=== PATIENT | male | born 1960 | race Caucasian/White ===

== ENCOUNTER 2022-06-02 00:33 | Day surgery (SDC) | payer OTHER, SELFPAY ==
[2022-05-24 12:10] VITALS: BMI 38.0
[2022-06-02 10:10] VITALS: BP 114/60; PULSE 90; RESP 18; TEMP 36.2; O2SAT 96
--- NOTE | 2022-06-02 10:12 | P.HP_ITS ---
H&P: HPI History of Present Illness Date/Time: 06/02/22 10:12 Chief Complaint: History of colon polyps, neoplasia screening. Narrative: This is a 61-year-old white male patient presents for neoplasia screening. Patient reports his current weight appetite and bowel movements are normal. He denies abdominal pain. Patient has had no bleeding. Family history noncontributory. Patient was found to have benign serrated adenomatous colon polyp at the time of last colonoscopy 5 years ago. Patient presents today for follow-up surveillance colonoscopy. Review of Systems Review of Systems: Review of systems noncontributory. [facility] Past Medical History Medical History (Updated 06/02/22 @ 10:13 by Ignacio Foreman MD) Anxiety Arthritis Essential hypertension GERD (gastroesophageal reflux disease) Hypertension Hypothyroidism Sleep apnea Surgical History Surgical History (System 02/02/20 @ 12:16 by Zoë Katz) History of orthopedic surgery ORIF of right hip, CR Left arm. Right hip replacement 2010. Family History Family History (System 02/02/20 @ 12:16 by Zoë Katz) Father Hypertension Asthma Mother Cancer Mother Family history of malignant neoplasm of brain Social History Social History (System 02/02/20 @ 12:16 by Zoë Katz) Smoking status: Never smoker Second hand tobacco smoke exposure: No Alcohol intake: current Drinks per week: 10 Alcohol use details: BEER Substance use: never Substance use type: does not use Living arrangements: with family Spiritual care concerns: No Meds Home Medications and Allergies Home Medications Medication Instructions Recorded Confirmed Type levothyroxine 88 mcg tablet 88 mcg PO DAILY 10/07/19 05/24/22 History losartan 100 1 tablet PO DAILY 10/07/19 05/24/22 History mg-hydrochlorothiazide 25 mg tablet verapamil 180 mg tablet,extended 180 mg PO DAILY 10/07/19 05/24/22 History release Allergies Allergy/AdvReac Type Severity Reaction Status Date / Time Penicillins Allergy Mild Unknown Verified 06/02/22 10:08 lisinopril AdvReac Cough Verified 06/02/22 10:08 Exam Narrative: Physical exam reveals patient to be alert. Vital signs stable. HEENT exam is unremarkable. Patient is anicteric. Lungs are clear to auscultation and percussion. Heart is without murmur or extra sounds. Abdominal exam bowel sounds present soft nontender with no organomegaly. Digital external rectal exam is normal. Assessment and Plan Assessment and plan (1) History of colon polyps: Code(s): Z86.010 - Personal history of colonic polyps Status: Acute Assessment and Plan: Patient has a history of benign colon polyps removed in the colon 5 years ago. Patient presents today for screening surveillance colonoscopy. Further recommendations will be given after endoscopy.
[2022-06-02] MEDS: LACTATED RINGERS 1,000 ML 150 ML IV CONT (10:25)
--- NOTE | 2022-06-02 10:31 | WPDANESEPPF ---
Anes - Initial Pre Proc Eval Procedure: Operation Date: 06/02/22 11:15 Proposed Procedures p Screening Colonoscopy - Ignacio Foreman MD Date/Time: 06/02/22 10:31 Surgeon: Ignacio Foreman MD Pre Op Diagnosis: hx of colon polyps, neoplasm screening Patient Data Age: 61 Gender: M Height: 1.68 m Weight: 107.4 kg Last Vital Signs Temp 36.2 C L 06/02/22 10:10 Pulse 90 06/02/22 10:10 Resp 18 06/02/22 10:10 BP 114/60 06/02/22 10:10 Pulse Ox 96 06/02/22 10:10 O2 Del Method Room Air 06/02/22 10:10 Allergies Allergy/AdvReac Type Severity Reaction Status Date / Time Penicillins Allergy Mild Unknown Verified 06/02/22 10:08 lisinopril AdvReac Cough Verified 06/02/22 10:08 Home Medications Medication Instructions Recorded Confirmed Type levothyroxine 88 mcg tablet 88 mcg PO DAILY 10/07/19 05/24/22 History losartan 100 1 tablet PO DAILY 10/07/19 05/24/22 History mg-hydrochlorothiazide 25 mg tablet verapamil 180 mg tablet,extended 180 mg PO DAILY 10/07/19 05/24/22 History release Patient hx anesthesia problems: none Family hx anesthesia problems: none Results Review: All pre-operative results and documents have been reviewed as part of the pre-operative evaluation. [facility] Past Medical History Medical History Anxiety Arthritis Essential hypertension GERD (gastroesophageal reflux disease) Hypertension Hypothyroidism Sleep apnea Surgical History Surgical History History of orthopedic surgery ORIF of right hip, CR Left arm. Right hip replacement 2010. Family History Family History Father Hypertension Asthma Mother Cancer Mother Family history of malignant neoplasm of brain Social History Social History Smoking status: Never smoker Second hand tobacco smoke exposure: No Alcohol intake: current Drinks per week: 10 Alcohol use details: BEER Substance use: never Substance use type: does not use Living arrangements: with family Spiritual care concerns: No Anes - Eval Final PreProcedure Day of Procedure 06/02/22 10:31 Patient weight: obese Heart: regular rate and rhythm Lungs: clear to auscultation Airway: Mallampati scale class II Neurological: alert and oriented Last oral intake: >/= 8 hours ASA classification: III Emergent: no Anesthetic plan: proceed Anesthesia type and monitoring: general GIVS and standard monitoring Results Review: All pre-operative results and documents have been reviewed as part of the pre-operative evaluation. Informed Consent: The patient's anesthetic plan and its attendant risks and benefits were discussed with the patient/family/POA. Questions were solicited and answers provided to the satisfaction of the patient/family/POA.
[2022-06-02 11:27] VITALS: BP 109/67; PULSE 77; RESP 15; O2SAT 95
[2022-06-02 11:37] VITALS: BP 115/73; PULSE 75; RESP 17; O2SAT 98
[2022-06-02 11:47] VITALS: BP 131/82; PULSE 73; O2SAT 98
== END 2022-06-02 11:54 | disposition home or self-care (01) ==
PROVIDERS: PCP Internal Medicine; Visit Provider Internal Medicine Gastroenterology
PROC: 0DJD8ZZ Inspection of Lower Intestinal Tract, Via Natural or Artificial Opening Endoscopic (ICD-10-PCS; CPT 45378; principal; 2022-06-02 11:15)
DX: Z12.11 Encounter for screening for malignant neoplasm of colon (principal); D12.4 Benign neoplasm of descending colon; K62.1 Rectal polyp; K57.30 Diverticulosis of large intestine without perforation or abscess without bleeding; E03.9 Hypothyroidism, unspecified; F41.9 Anxiety disorder, unspecified; I10 Essential (primary) hypertension; G47.30 Sleep apnea, unspecified; E66.9 Obesity, unspecified; Z68.38 Body mass index [BMI] 38.0-38.9, adult
CPT/HCPCS: 45385; 88305; J2704; J7120

== ENCOUNTER 2025-10-02 00:08 | Day surgery (SDC) | payer BC, SELFPAY ==
[2025-09-16 09:30] VITALS: BMI 36.3
--- OUTSIDE RECORDS SUMMARY | 2025-10-02 00:11 | XMS_ITS | Data Portability ---
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 Plan of Treatment Reminders Order Date Submit Date Provider Last Modified By Organization Details Last Modified Time Details Appointments None recorded . Lab CMP, serum or plasma 2024 025 BESSIE [facility], [address], [place], [address], 5 12:20:51 lipid panel, serum 2024 025 BESSIE [facility], [address], [place], [address], 5 12:20:50 CBC 2024 025 BESSIE [facility], [address], [address], [place], [address], 5 12:20:55 PSA, serum or plasma 2024 025 [facility], [address] [facility], [address], [place], [address], 5 12:20:53 TSH, ultra-se nsitive, serum 2024 025 BESSIE [facility], [address], [place], [address], 5 12:20:52 [email or web address] n and folate panel, serum 2024 025 [facility], [address] [facility], [facility] [address], [place], [address], 5 12:20:54 CBC w/ auto diff 2023 024 [facility], [address] [facility], [facility] 2, [place], [address], 4 12:12:25 CMP, serum or plasma 2023 024 [facility], [address] [facility], [facility] [address], [place], [address], 4 12:12:23 TSH, ultra-se nsitive, serum 2023 024 [facility], [address] [facility], [facility] [address], [place], [address], 4 12:12:24 ferritin , serum or plasma 2023 024 [facility], [address] [facility], [facility] [address], [place], [address], 4 12:12:25 TIBC (total iron-bin ding capacity ), serum 2023 024 [facility], [address] [facility], [facility] [address], [place], [address], 4 12:12:23 vitamin B12, serum 2022 023 [facility], [address] [facility], [address], [place], [address], 3 12:12:28 HbA1c (hemoglo bin A1c), blood 2022 023 [facility], [address] [facility], [address], [place], [address], 3 12:12:27 PSA, serum or plasma 2022 023 [email or web address] [facility], [address] [facility], [address], [place], [address], 3 11:28:51 CBC w/ auto diff 2022 023 [facility], [address] [place] [address] 2, [place], [address], 3 04:19:47 CMP, serum or plasma 2022 023 [facility], [address] [place] [address] 2, [place], [address], 3 04:19:47 lipid panel, serum 2022 023 [facility], [address] [place] [address] 2, [place], [address], 3 04:19:46 TSH, ultra-se nsitive, serum 2022 023 [facility], [address] [place] [address] 2, [place], [address], 3 12:12:[address] referral 2022 023 [email or web address] Courtney Duque DPM, [address] [place], [address], 3 11:35:[address] referral 2022 023 [email or web address] [facility], [address] [place], [address], 3 12:28:19 Procedures colonosc opy procedur e (PROC) 2024 025 [facility], [address], [address], [place], [address], 13:56:38 Surgeries None recorded . Imaging electrom yogram + nerve conducti on study [address] (Cardiology & Emg), [address] [facility] [address] [facility], [place], [address], 17:45:23 XR, wrist, 3 or more view 2024 [facility], [address] [place] [address] [address], [place], [address], 11:33:09 Medication Orders valsarta n 320 mg-hydro chloroth iazide 25 mg tablet 2024 [facility], [address] [place], [address], 09:47:57 verapami l ER (SR) 180 mg tablet,e xtended release 2024 [facility], [address] [place], [address], 09:47:58 levothyr oxine 88 mcg tablet 2024 [facility], [address] [place], [address], 09:47:57 cyanocob alamin (vit B-12) 1,000 mcg tablet 2024 025 [facility], [address] [place], [address], 09:47:57 valsarta n 320 mg-hydro chloroth iazide 25 mg tablet 2024 025 [facility], [address] [place], [address], 5 09:53:23 verapami l ER (SR) 180 mg tablet,e xtended release 2024 025 [facility], [address] [place], [address], 5 09:53:21 levothyr oxine 88 mcg tablet 2024 025 [facility] [address] [place], [address], 5 09:53:22 cyanocob alamin (vit B-12) 1,000 mcg tablet 2024 025 [facility] [address] [place], [address], 5 09:53:21 cyanocob alamin (vit B-12) 1,000 mcg tablet 2022 023 [email or web address] [address] [facility], [address] [place], [address], 09:27:50 Patient TargetsNo targets recorded. Patient Instructions Encounter Date Encounter Id Patient Instructions Last Modified By Organization Details Last Modified Time 03/16/2023 [id number] A healthy lifestyle: care instructions nsuthan Not available 03/16/2023 11:46:58 prostate cancer screening: care instructions nsuthan Not available 03/16/2023 11:46:58 labs/f/u in 4 month nsuthan Not available 03/16/2023 11:58:15 08/24/2023 [id number] A healthy lifestyle: care instructions nsuthan Not available 08/24/2023 12:40:21 f/u in 6 month nsuthan Not available 1 12:52:01 03/21/2024 [id number] A healthy lifestyle: care instructions nsuthan Not available 03/21/2024 09:41:19 03/17/2025 [id number] A healthy lifestyle: care instructions Not available 03/17/2025 09:53:18 learning about high blood pressure Not available 03/17/2025 09:53:19 hypothyroidism: care instructions Not available 03/17/2025 09:53:18 Increase intake of fresh fruits, and vegetables. Avoid packaged foods and fast foods. Follow a low salt diet, drink at least 8-10 8oz glasses of water a day, exercise most days of the week. Take all medications as prescribed. Keep appointments with PCP and all specialists. Not available 03/17/2025 09:53:41 follow up in 6 months or sooner if needed Not available 03/17/2025 09:53:52 08/13/2025 [id number] Quitting Tobacco : Care Instructions Not available 08/13/2025 09:47:53 A healthy lifestyle: care instructions Not available 08/13/2025 09:47:53 learning about high blood pressure Not available 08/13/2025 09:47:53 Please call office if any questions or concerns. Take all medicines as prescribed and follow with all specialists as planned. Not available 08/13/2025 09:51:09 Follow-up as planned Not available 08/13/2025 09:51:02 Reason for Referral [facility] Referral for Onyc homycosis of toenails Referring Physician: Lois Schuster, Internal Medicine, Encounter Date: 03/16/2023 [facility] Referral for Onyc homycosis of toenails Referring Physician: Lois Schuster, Internal Medicine, Encounter Date: 08/24/2023 Results Created Date Observation Date Name Description Value Unit Range Abnormal Flag Note LastModifiedBy Organization Detail LastModifiedTime 08/23/2008/24/2023 LIPID PANEL cholesterol, total 204 mg/dL 100-19 9 above high normal Not Available [facility] ([facility]) [address] [facility], [place], [address], 08/24/2023 04:19:46 08/23/2008/24/2023 LIPID PANEL triglyceride s 263 mg/dL 0-149 above high normal Not Available [facility] ([facility]) [address] [place], [address], 08/24/2023 04:19:46 08/23/2008/24/2023 LIPID PANEL HDL cholesterol 49 mg/dL >39 Not Available [facility] ([facility]) [address] [place], [address], 08/24/2023 04:19:46 08/23/2008/24/2023 LIPID PANEL VLDL cholesterol cristhian 45 mg/dL 5-40 above high normal Not Available [facility] ([facility]) [address] [place], [address], 08/24/2023 04:19:46 08/23/2008/24/2023 LIPID PANEL LDL chol calc ([facility]) 110 mg/dL 0-99 above high normal Not Available [facility] ([facility]) [address] [place], [address], 08/24/2023 04:19:46 08/23/2008/24/2023 COMP. METAB OLIC PANEL (14) glucose 149 mg/dL 70-99 above high normal Not Available [facility] ([facility]) [address] [place], [address], 08/24/2023 04:19:47 08/23/2008/24/2023 COMP. METAB OLIC PANEL (14) BUN 17 mg/dL 8-27 Not Available [facility] ([facility]) [address] [place], [address], 08/24/2023 04:19:47 08/23/2008/24/2023 COMP. METAB OLIC PANEL (14) creatinine 0.88 mg/dL 0.76-1 .27 Not Available [facility] ([facility]) [address] [place], [address], 08/24/2023 04:19:47 08/23/20 23 08/24/2023 COMP. METAB OLIC PANEL (14) eGFR 98 mL/mi n/1.7 3 >59 Not Available [facility] ([facility]) [address] [facility], [place], [address], 08/24/2023 04:19:47 08/23/20 23 08/24/2023 COMP. METAB OLIC PANEL (14) BUN/creatini ne ratio 19 10-24 Not Available [facility] ([facility]) [address] [facility], [place], [address], 08/24/2023 04:19:47 08/23/2008/24/2023 COMP. METAB OLIC PANEL (14) sodium 142 mmol/ L 134-14 4 Not Available [facility] ([facility]) [address] [facility], [place], [address], 08/24/2023 04:19:47 08/23/20 23 08/24/2023 COMP. METAB OLIC PANEL (14) potassium 4.3 mmol/ L 3.5-5. 2 Not Available [facility] ([facility]) [address] [facility], [place], [address], 08/24/2023 04:19:47 08/23/20 23 08/24/2023 COMP. METAB OLIC PANEL (14) chloride 99 mmol/ L 96-106 Not Available [facility] ([facility]) [address] [facility], [place], [address], 08/24/2023 04:19:47 08/23/2008/24/2023 COMP. METAB OLIC PANEL (14) carbon dioxide, total 26 mmol/ L 20-29 Not Available [facility] ([facility]) [address] [facility], [place], [address], 08/24/2023 04:19:47 08/23/2008/24/2023 COMP. METAB OLIC PANEL (14) calcium 9.5 mg/dL 8.6-10 .2 Not Available [facility] ([facility]) [address] [facility], [place], [address], 08/24/2023 04:19:47 08/23/20 23 08/24/2023 COMP. METAB OLIC PANEL (14) protein, total 7.0 g/dL 6.0-8. 5 Not Available [facility] ([facility]) [address] [facility], [place], [address], 08/24/2023 04:19:47 08/23/2008/24/2023 COMP. METAB OLIC PANEL (14) albumin 5.0 g/dL 3.9-4. 9 above high normal Not Available [facility] ([facility]) [address] [facility], [place], [address], 08/24/2023 04:19:47 08/23/20 23 08/24/2023 COMP. METAB OLIC PANEL (14) globulin, total 2.0 g/dL 1.5-4. 5 Not Available [facility] ([facility]) [address] [place], [address], 08/24/2023 04:19:47 08/23/20 23 08/24/2023 COMP. METAB OLIC PANEL (14) A/G ratio 2.5 1.2-2. 2 above high normal Not Available [facility] ([facility]) [address] [place], [address], 08/24/2023 04:19:47 08/23/2008/24/2023 COMP. METAB OLIC PANEL (14) bilirubin, total 0.7 mg/dL 0.0-1. 2 Not Available [facility] ([facility]) [address] [facility], [place], [address], 08/24/2023 04:19:47 08/23/2008/24/2023 COMP. METAB OLIC PANEL (14) alkaline phosphatase 62 IU/L 44-121 Not Available [facility] ([facility]) [address] [facility], [place], [address], 08/24/2023 04:19:47 08/23/2008/24/2023 COMP. METAB OLIC PANEL (14) AST (SGOT) 23 IU/L 0-40 Not Available [facility] ([facility]) [address] [facility], [place], [address], 08/24/2023 04:19:47 08/23/2008/24/2023 COMP. METAB OLIC PANEL (14) ALT (SGPT) 22 IU/L 0-44 Not Available [facility] ([facility]) [address] [facility], [place], [address], 08/24/2023 04:19:47 08/23/2008/23/2023 CBC WITH DIFFE RENTI AL/PL ATELE T WBC 6.8 x10e3 /uL 3.4-10 .8 Not Available [facility] ([facility]) [address] [facility], [place], [address], 08/24/2023 04:19:47 08/23/2008/23/2023 CBC WITH DIFFE RENTI AL/PL ATELE T RBC 5.43 x10e6 /uL 4.14-5 .80 Not Available [facility] ([facility]) [address] [place], [address], 08/24/2023 04:19:47 08/23/2008/23/2023 CBC WITH DIFFE RENTI AL/PL ATELE T hemoglobin 17.9 g/dL 13.0-1 7.7 above high normal Not Available [facility] ([facility]) [address] [facility], [place], [address], 08/24/2023 04:19:47 08/23/2008/23/2023 CBC WITH DIFFE RENTI AL/PL ATELE T hematocrit 51.6 % 37.5-5 1.0 above high normal Not Available [facility] ([facility]) [address] [facility], [place], [address], 08/24/2023 04:19:47 08/23/2008/23/2023 CBC WITH DIFFE RENTI AL/PL ATELE T MCV 95 fL 79-97 Not Available [facility] ([facility]) [address] [facility], [place], [address], 08/24/2023 04:19:47 08/23/2008/23/2023 CBC WITH DIFFE RENTI AL/PL ATELE T MCH 33.0 pg 26.6-3 3.0 Not Available [facility] ([facility]) [address] [facility], [place], [address], 08/24/2023 04:19:47 08/23/2008/23/2023 CBC WITH DIFFE RENTI AL/PL ATELE T MCHC 34.7 g/dL 31.5-3 5.7 Not Available [facility] ([facility]) [address] [place], [address], 08/24/2023 04:19:47 08/23/2008/23/2023 CBC WITH DIFFE RENTI AL/PL ATELE T RDW 11.9 % 11.6-1 5.4 Not Available [facility] ([facility]) [address] [place], [address], 08/24/2023 04:19:47 08/23/2008/23/2023 CBC WITH DIFFE RENTI AL/PL ATELE T platelets 212 x10e3 /uL 150-45 0 Not Available [facility] ([facility]) [address] [place], [address], 08/24/2023 04:19:47 08/23/2008/23/2023 CBC WITH DIFFE RENTI AL/PL ATELE T neutrophils 56 % notest ab. Not Available [facility] ([facility]) [address] [facility], [place], [address], 08/24/2023 04:19:47 08/23/2008/23/2023 CBC WITH DIFFE RENTI AL/PL ATELE T lymphs 34 % notest ab. Not Available [facility] ([facility]) [address] [facility], [place], [address], 08/24/2023 04:19:47 08/23/20 23 08/23/2023 CBC WITH DIFFE RENTI AL/PL ATELE T monocytes 6 % notest ab. Not Available [facility] ([facility]) [address] [facility], [place], [address], 08/24/2023 04:19:47 08/23/2008/23/2023 CBC WITH DIFFE RENTI AL/PL ATELE T eos 3 % notest ab. Not Available [facility] ([facility]) [address] [facility], [place], [address], 08/24/2023 04:19:47 08/23/2008/23/2023 CBC WITH DIFFE RENTI AL/PL ATELE T basos 1 % notest ab. Not Available [facility] ([facility]) [address] [facility], [place], [address], 08/24/2023 04:19:47 08/23/2008/23/2023 CBC WITH DIFFE RENTI AL/PL ATELE T neutrophils (absolute) 3.9 x10e3 /uL 1.4-7. 0 Not Available [facility] ([facility]) [address] [facility], [place], [address], 08/24/2023 04:19:47 08/23/20 23 08/23/2023 CBC WITH DIFFE RENTI AL/PL ATELE T lymphs (absolute) 2.3 x10e3 /uL 0.7-3. 1 Not Available [facility] ([facility]) [address] [facility], [place], [address], 08/24/2023 04:19:47 08/23/2008/23/2023 CBC WITH DIFFE RENTI AL/PL ATELE T monocytes(ab solute) 0.4 x10e3 /uL 0.1-0. 9 Not Available [facility] ([facility]) [address] [facility], [place], [address], 08/24/2023 04:19:47 08/23/2008/23/2023 CBC WITH DIFFE RENTI AL/PL ATELE T eos (absolute) 0.2 x10e3 /uL 0.0-0. 4 Not Available [facility] ([facility]) [address] [facility], [place], [address], 08/24/2023 04:19:47 08/23/2008/23/2023 CBC WITH DIFFE RENTI AL/PL ATELE T baso (absolute) 0.0 x10e3 /uL 0.0-0. 2 Not Available [facility] ([facility]) [address] [facility], [place], [address], 08/24/2023 04:19:47 08/23/20 23 08/23/2023 CBC WITH DIFFE RENTI AL/PL ATELE T immature granulocytes 0 % notest ab. Not Available [facility] ([facility]) [address] [place], [address], 08/24/2023 04:19:47 08/23/2008/23/2023 CBC WITH DIFFE RENTI AL/PL ATELE T immature grans (abs) 0.0 x10e3 /uL 0.0-0. 1 Not Available [facility] ([facility]) [address] [facility], [place], [address], 08/24/2023 04:19:47 08/23/20 23 08/24/2023 PSA (SERI AL MONIT OR) prostate specific Ag 1.9 NG/mL 0.0-4. 0 Trudy ECLIA metho dolog y. Accor ding to the Ameri can [employer] g[employer] iatio n, Serum PSA shoul d decre ase and remai n at undet ectab le level s after radic al prost atect jason. The AUA defin es bioch emica l recur rence as an initi al PSA value 0.2 ng/mL or great er follo wed by a subse quent confi rmato ry PSA value 0.2 ng/mL or great er. Value s obtai uli with diffe rent assay metho ds or kits canno t be used inter alaniz eably . Resul ts canno t be inter prete d as absol [facility] ev[facility] nce of the prese nce or absen ce of cristina fu se. Not Available [facility] ([facility]) [address] [facility], [place], [address], 08/24/2023 12:12:27 08/23/2008/24/2023 PSA (SERI AL MONIT OR) pdf . Not Available [facility] ([facility]) [address] [place], [address], 08/24/2023 12:12:27 08/23/2008/24/2023 HEMOG LOBIN A1C hemoglobin A1C 5.3 % 4.8-5. 6 Predi abete s: 5.7 - 6.4 Diabe jag: >6.4 Glyce anil contr ol for adult s with diabe jag: <7.0 Not Available [facility] ([facility]) [address] [place], [address], 08/24/2023 12:12:27 08/23/2008/24/2023 TSH TSH 2.390 uIU/m L 0.450- 4.500 Not Available [facility] ([facility]) [address] [place], [address], 08/24/2023 12:12:28 08/23/2008/24/2023 VITAM IN B12 vitamin B12 308 pg/mL 232-12 45 Not Available [facility] ([facility]) [address] [facility], [place], [address], 08/24/2023 12:12:28 06/09/20 24 06/10/2024 COMP. METAB OLIC PANEL (14) glucose 118 mg/dL 70-99 above high normal Not Available [facility] ([facility]) [address] [facility], [place], [address], 06/10/2024 12:12:23 06/09/20 24 06/10/2024 COMP. METAB OLIC PANEL (14) BUN 17 mg/dL 8-27 Not Available [facility] ([facility]) [address] [facility], [place], [address], 06/10/2024 12:12:23 06/09/20 24 06/10/2024 COMP. METAB OLIC PANEL (14) creatinine 0.94 mg/dL 0.76-1 .27 Not Available [facility] ([facility]) [address] [place], [address], 06/10/2024 12:12:23 06/09/20 24 06/10/2024 COMP. METAB OLIC PANEL (14) eGFR 92 mL/mi n/1.7 3 >59 Not Available [facility] ([facility]) [address] [facility], [place], [address], 06/10/2024 12:12:23 06/09/20 24 06/10/2024 COMP. METAB OLIC PANEL (14) BUN/creatini ne ratio 18 10-24 Not Available [facility] ([facility]) [address] [place], [address], 06/10/2024 12:12:23 06/09/20 24 06/10/2024 COMP. METAB OLIC PANEL (14) sodium 142 mmol/ L 134-14 4 Not Available [facility] ([facility]) [address] [place], [address], 06/10/2024 12:12:23 06/09/20 24 06/10/2024 COMP. METAB OLIC PANEL (14) potassium 3.9 mmol/ L 3.5-5. 2 Not Available [facility] ([facility]) [address] [place], [address], 06/10/2024 12:12:23 06/09/20 24 06/10/2024 COMP. METAB OLIC PANEL (14) chloride 101 mmol/ L 96-106 Not Available [facility] ([facility]) [address] [place], [address], 06/10/2024 12:12:23 06/09/20 24 06/10/2024 COMP. METAB OLIC PANEL (14) carbon dioxide, total 22 mmol/ L - Not Available [facility] ([facility]) [address] [place], [address], 06/10/2024 12:12:23 06/09/20 24 06/10/2024 COMP. METAB OLIC PANEL (14) calcium 9.4 mg/dL 8.6-10 .2 Not Available [facility] ([facility]) [address] [place], [address], 06/10/2024 12:12:23 06/09/20 24 06/10/2024 COMP. METAB OLIC PANEL (14) protein, total 6.8 g/dL 6.0-8. 5 Not Available [facility] ([facility]) [address] [place], [address], 06/10/2024 12:12:23 06/09/20 24 06/10/2024 COMP. METAB OLIC PANEL (14) albumin 4.5 g/dL 3.9-4. 9 Not Available [facility] ([facility]) [address] [place], [address], 06/10/2024 12:12:23 06/09/20 24 06/10/2024 COMP. METAB OLIC PANEL (14) globulin, total 2.3 g/dL 1.5-4. 5 Not Available [facility] ([facility]) [address] [facility], [place], [address], 06/10/2024 12:12:23 06/09/20 24 06/10/2024 COMP. METAB OLIC PANEL (14) bilirubin, total 0.4 mg/dL 0.0-1. 2 Not Available [facility] ([facility]) [address] [facility], [place], [address], 06/10/2024 12:12:23 06/09/20 24 06/10/2024 COMP. METAB OLIC PANEL (14) alkaline phosphatase 73 IU/L 44-121 Not Available [facility] ([facility]) [address] [facility], [place], [address], 06/10/2024 12:12:23 06/09/20 24 06/10/2024 COMP. METAB OLIC PANEL (14) AST (SGOT) 22 IU/L 0-40 Not Available [facility] ([facility]) [address] [facility], [place], [address], 06/10/2024 12:12:23 06/09/20 24 06/10/2024 COMP. METAB OLIC PANEL (14) ALT (SGPT) 21 IU/L 0-44 Not Available [facility] ([facility]) [address] [facility], [place], [address], 06/10/2024 12:12:23 06/09/20 24 06/10/2024 IRON AND TIBC iron bind.cap.(TI BC) 327 ug/dL 250-45 0 Not Available [facility] ([facility]) [address] [facility], [place], [address], 06/10/2024 12:12:23 06/09/20 24 06/10/2024 IRON AND TIBC UIBC 232 ug/dL 111-34 3 Not Available [facility] ([facility]) [address] [place], [address], 06/10/2024 12:12:23 06/09/20 24 06/10/2024 IRON AND TIBC iron 95 ug/dL 38-169 Not Available [facility] ([facility]) [address] [place], [address], 06/10/2024 12:12:23 06/09/20 24 06/10/2024 IRON AND TIBC iron saturation 29 % 15-55 Not Available [facility] ([facility]) [address] [place], [address], 06/10/2024 12:12:23 06/09/20 24 06/10/2024 TSH TSH 2.200 uIU/m L 0.450- 4.500 Not Available [facility] ([facility]) [address] [place], [address], 06/10/2024 12:12:24 06/09/20 24 06/10/2024 ALEC TIN ferritin 502 NG/mL 30-400 above high normal Not Available [facility] ([facility]) [address] [place], [address], 06/10/2024 12:12:25 06/09/20 24 06/10/2024 CBC WITH DIFFE RENTI AL/PL ATELE T WBC 6.9 x10e3 /uL 3.4-10 .8 Not Available [facility] ([facility]) [address] [place], [address], 06/10/2024 12:12:25 06/09/20 24 06/10/2024 CBC WITH DIFFE RENTI AL/PL ATELE T RBC 5.32 x10e6 /uL 4.14-5 .80 Not Available [facility] ([facility]) [address] [place], [address], 06/10/2024 12:12:25 06/09/20 24 06/10/2024 CBC WITH DIFFE RENTI AL/PL ATELE T hemoglobin 17.2 g/dL 13.0-1 7.7 Not Available [facility] ([facility]) [address] [place], [address], 06/10/2024 12:12:25 06/09/20 24 06/10/2024 CBC WITH DIFFE RENTI AL/PL ATELE T hematocrit 51.0 % 37.5-5 1.0 Not Available [facility] ([facility]) [address] [place], [address], 06/10/2024 12:12:25 06/09/20 24 06/10/2024 CBC WITH DIFFE RENTI AL/PL ATELE T MCV 96 fL 79-97 Not Available [facility] ([facility]) [address] [place], [address], 06/10/2024 12:12:25 06/09/20 24 06/10/2024 CBC WITH DIFFE RENTI AL/PL ATELE T MCH 32.3 pg 26.6-3 3.0 Not Available [facility] ([facility]) [address] [place], [address], 06/10/2024 12:12:25 06/09/20 24 06/10/2024 CBC WITH DIFFE RENTI AL/PL ATELE T MCHC 33.7 g/dL 31.5-3 5.7 Not Available [facility] ([facility]) [address] [place], [address], 06/10/2024 12:12:25 06/09/20 24 06/10/2024 CBC WITH DIFFE RENTI AL/PL ATELE T RDW 12.4 % 11.6-1 5.4 Not Available [facility] ([facility]) [address] [place], [address], 06/10/2024 12:12:25 06/09/20 24 06/10/2024 CBC WITH DIFFE RENTI AL/PL ATELE T platelets 211 x10e3 /uL 150-45 0 Not Available [facility] ([facility]) [address] [facility], [place], [address], 06/10/2024 12:12:25 06/09/20 24 06/10/2024 CBC WITH DIFFE RENTI AL/PL ATELE T neutrophils 59 % notest ab. Not Available [facility] ([facility]) [address] [facility], [place], [address], 06/10/2024 12:12:25 06/09/20 24 06/10/2024 CBC WITH DIFFE RENTI AL/PL ATELE T lymphs 32 % notest ab. Not Available [facility] ([facility]) [address] [facility], [place], [address], 06/10/2024 12:12:25 06/09/20 24 06/10/2024 CBC WITH DIFFE RENTI AL/PL ATELE T monocytes 6 % notest ab. Not Available [facility] ([facility]) [address] [facility], [place], [address], 06/10/2024 12:12:25 06/09/20 24 06/10/2024 CBC WITH DIFFE RENTI AL/PL ATELE T eos 2 % notest ab. Not Available [facility] ([facility]) [address] [facility], [place], [address], 06/10/2024 12:12:25 06/09/20 24 06/10/2024 CBC WITH DIFFE RENTI AL/PL ATELE T basos 1 % notest ab. Not Available [facility] ([facility]) [address] [facility], [place], [address], 06/10/2024 12:12:25 06/09/20 24 06/10/2024 CBC WITH DIFFE RENTI AL/PL ATELE T neutrophils (absolute) 4.1 x10e3 /uL 1.4-7. 0 Not Available [facility] ([facility]) [address] [facility], [place], [address], 06/10/2024 12:12:25 06/09/20 24 06/10/2024 CBC WITH DIFFE RENTI AL/PL ATELE T lymphs (absolute) 2.2 x10e3 /uL 0.7-3. 1 Not Available [facility] ([facility]) [address] [facility], [place], [address], 06/10/2024 12:12:25 06/09/20 24 06/10/2024 CBC WITH DIFFE RENTI AL/PL ATELE T monocytes(ab solute) 0.4 x10e3 /uL 0.1-0. 9 Not Available [facility] ([facility]) [address] [facility], [place], [address], 06/10/2024 12:12:25 06/09/20 24 06/10/2024 CBC WITH DIFFE RENTI AL/PL ATELE T eos (absolute) 0.2 x10e3 /uL 0.0-0. 4 Not Available [facility] ([facility]) [address] [facility], [place], [address], 06/10/2024 12:12:25 06/09/20 24 06/10/2024 CBC WITH DIFFE RENTI AL/PL ATELE T baso (absolute) 0.0 x10e3 /uL 0.0-0. 2 Not Available [facility] ([facility]) [address] [place], [address], 06/10/2024 12:12:25 06/09/20 24 06/10/2024 CBC WITH DIFFE RENTI AL/PL ATELE T immature granulocytes 0 % notest ab. Not Available [facility] ([facility]) [address] [facility], [place], [address], 06/10/2024 12:12:25 06/09/20 24 06/10/2024 CBC WITH DIFFE RENTI AL/PL ATELE T immature grans (abs) 0.0 x10e3 /uL 0.0-0. 1 Not Available [facility] ([facility]) [address] [place], [address], 06/10/2024 12:12:25 03/17/20 25 03/18/2025 LIPID PANEL cholesterol, total 181 mg/dL 100-19 9 Not Available [facility] ([facility]) [address] [place], [address], 03/18/2025 12:20:50 03/17/20 25 03/18/2025 LIPID PANEL triglyceride s 139 mg/dL 0-149 Not Available [facility] ([facility]) [address] [place], [address], 03/18/2025 12:20:50 03/17/20 25 03/18/2025 LIPID PANEL HDL cholesterol 60 mg/dL >39 Not Available [facility] ([facility]) [address] [place], [address], 03/18/2025 12:20:50 03/17/20 25 03/18/2025 LIPID PANEL VLDL cholesterol cristhian 24 mg/dL 5-40 Not Available [facility] ([facility]) [address] [place], [address], 03/18/2025 12:20:50 03/17/20 25 03/18/2025 LIPID PANEL LDL chol calc ([facility]) 97 mg/dL 0-99 Not Available [facility] ([facility]) [address] [place], [address], 03/18/2025 12:20:50 03/17/20 25 03/18/2025 COMP. METAB OLIC PANEL (14) glucose 108 mg/dL 70-99 above high normal Not Available [facility] ([facility]) [address] [facility], [place], [address], 03/18/2025 12:20:51 03/17/20 25 03/18/2025 COMP. METAB OLIC PANEL (14) BUN 18 mg/dL 8-27 Not Available [facility] ([facility]) [address] [place], [address], 03/18/2025 12:20:51 03/17/20 25 03/18/2025 COMP. METAB OLIC PANEL (14) creatinine 0.86 mg/dL 0.76-1 .27 Not Available [facility] ([facility]) [address] [place], [address], 03/18/2025 12:20:51 03/17/20 25 03/18/2025 COMP. METAB OLIC PANEL (14) eGFR 97 mL/mi n/1.7 3 >59 Not Available [facility] ([facility]) [address] [facility], [place], [address], 03/18/2025 12:20:51 03/17/20 25 03/18/2025 COMP. METAB OLIC PANEL (14) BUN/creatini ne ratio 21 10-24 Not Available [facility] ([facility]) [address] [place], [address], 03/18/2025 12:20:51 03/17/20 25 03/18/2025 COMP. METAB OLIC PANEL (14) sodium 142 mmol/ L 134-14 4 Not Available [facility] ([facility]) [address] [place], [address], 03/18/2025 12:20:51 03/17/20 25 03/18/2025 COMP. METAB OLIC PANEL (14) potassium 4.2 mmol/ L 3.5-5. 2 Not Available [facility] ([facility]) [address] [place], [address], 03/18/2025 12:20:51 03/17/20 25 03/18/2025 COMP. METAB OLIC PANEL (14) chloride 102 mmol/ L 96-106 Not Available [facility] ([facility]) [address] [place], [address], 03/18/2025 12:20:51 03/17/20 25 03/18/2025 COMP. METAB OLIC PANEL (14) carbon dioxide, total 25 mmol/ L 20-29 Not Available [facility] ([facility]) [address], [place], [address], 03/18/2025 12:20:51 03/17/20 25 03/18/2025 COMP. METAB OLIC PANEL (14) calcium 9.4 mg/dL 8.6-10 .2 Not Available [facility] ([facility]) [address] [place], [address], 03/18/2025 12:20:51 03/17/20 25 03/18/2025 COMP. METAB OLIC PANEL (14) protein, total 6.8 g/dL 6.0-8. 5 Not Available [facility] ([facility]) [address] [place], [address], 03/18/2025 12:20:51 03/17/20 25 03/18/2025 COMP. METAB OLIC PANEL (14) albumin 4.7 g/dL 3.9-4. 9 Not Available [facility] ([facility]) [address] [place], [address], 03/18/2025 12:20:51 03/17/20 25 03/18/2025 COMP. METAB OLIC PANEL (14) globulin, total 2.1 g/dL 1.5-4. 5 Not Available [facility] ([facility]) [address] [place], [address], 03/18/2025 12:20:51 03/17/20 25 03/18/2025 COMP. METAB OLIC PANEL (14) bilirubin, total 0.5 mg/dL 0.0-1. 2 Not Available [facility] ([facility]) [address] [place], [address], 03/18/2025 12:20:51 03/17/20 25 03/18/2025 COMP. METAB OLIC PANEL (14) alkaline phosphatase 62 IU/L 44-121 Not Available [facility] ([facility]) [address] [place], [address], 03/18/2025 12:20:51 03/17/20 25 03/18/2025 COMP. METAB OLIC PANEL (14) AST (SGOT) 21 IU/L 0-40 Not Available [facility] ([facility]) [address] [place], [address], 03/18/2025 12:20:51 03/17/20 25 03/18/2025 COMP. METAB OLIC PANEL (14) ALT (SGPT) 16 IU/L 0-44 Not Available [facility] ([facility]) [address] [place], [address], 03/18/2025 12:20:51 03/17/20 25 03/18/2025 TSH RFX ON ABNOR MAL TO FREE T4 TSH 2.460 uIU/m L 0.450- 4.500 Not Available [facility] ([facility]) [address] [place], [address], 03/18/2025 12:20:52 03/17/20 25 03/17/2025 PSA TOTAL (REFL EX TO FREE) reflex criteria COMMEN T The perce nt free PSA is perfo rmed on a refle x basis only when the total PSA is betwe en 4.0 and 10.0 ng/mL . Not Available [facility] ([facility]) [address] [place], [address], 03/18/2025 12:20:53 03/17/20 25 03/18/2025 PSA TOTAL (REFL EX TO FREE) prostate specific Ag 3.4 NG/mL 0.0-4. 0 Trudy ECLIA metho dolog y. Accor zeke to the Ameri can [employer] g[employer] iatio n, Serum PSA shoul d decre ase and remai n at undet ectab le level s after radic al prost atect jason. The AUA defin es bioch emica l recur rence as an initi al PSA value 0.2 ng/mL or great er follo wed by a subse quent confi rmato ry PSA value 0.2 ng/mL or great er. Value s obtai uli with diffe rent assay metho ds or kits canno t be used inter alaniz eably . Resul ts canno t be inter prete d as absol [facility] prese nce or absen ce of [facility] se. Not Available [facility] ([facility]) [address] [facility], [place], [address], 03/18/2025 12:20:53 03/17/20 25 03/18/2025 VITAM IN B12 AND FOLAT E vitamin B12 1159 pg/mL 232-12 45 Not Available [facility] ([facility]) [address] [place], [address], 03/18/2025 12:20:54 03/17/20 25 03/18/2025 VITAM IN B12 AND FOLAT E folate (folic acid), serum 15.1 NG/mL >3.0 A serum folat e joe ntrat ion of less than 3.1 ng/mL is consi dered to repre sent clini cristhian defic iency . Not Available [facility] ([facility]) [address] [facility], [place], [address], 03/18/2025 12:20:54 03/17/20 25 03/18/2025 CBC, PLATE LET, NO DIFFE RENTI AL WBC 7.0 x10e3 /uL 3.4-10 .8 Not Available [facility] ([facility]) [address] [facility], [place], [address], 03/18/2025 12:20:55 03/17/2003/18/2025 CBC, PLATE LET, NO DIFFE RENTI AL RBC 4.65 x10e6 /uL 4.14-5 .80 Not Available [facility] ([facility]) [address] [facility], [place], [address], 03/18/2025 12:20:55 03/17/20 25 03/18/2025 CBC, PLATE LET, NO DIFFE RENTI AL hemoglobin 15.5 g/dL 13.0-1 7.7 Not Available [facility] ([facility]) [address] [facility], [place], [address], 03/18/2025 12:20:55 03/17/20 25 03/18/2025 CBC, PLATE LET, NO DIFFE RENTI AL hematocrit 44.9 % 37.5-5 1.0 Not Available [facility] ([facility]) [address] [facility], [place], [address], 03/18/2025 12:20:55 03/17/2003/18/2025 CBC, PLATE LET, NO DIFFE RENTI AL MCV 97 fL 79-97 Not Available [facility] ([facility]) [address] [place], [address], 03/18/2025 12:20:55 03/17/2003/18/2025 CBC, PLATE LET, NO DIFFE RENTI AL MCH 33.3 pg 26.6-3 3.0 above high normal Not Available [facility] ([facility]) [address] [place], [address], 03/18/2025 12:20:55 03/17/20 25 03/18/2025 CBC, PLATE LET, NO DIFFE RENTI AL MCHC 34.5 g/dL 31.5-3 5.7 Not Available [facility] ([facility]) [address] [facility], [place], [address], 03/18/2025 12:20:55 03/17/20 25 03/18/2025 CBC, PLATE LET, NO DIFFE RENTI AL RDW 12.1 % 11.6-1 5.4 Not Available [facility] ([facility]) [address] [facility], [place], [address], 03/18/2025 12:20:55 03/17/2003/18/2025 CBC, PLATE LET, NO DIFFE RENTI AL platelets 217 x10e3 /uL 150-45 0 Not Available [facility] ([facility]) [address] [facility], [place], [address], 03/18/2025 12:20:55 Result Notes None recorded. Problems Name Problem SNOMED Code Status Onset Date Resolution Date Notes Provider Name and Address Organization Details Recorded Time [facility] 67585217 Active 2015 Anjum Schuster MD Attn: Balta yael,[address] [facility], [place], [address], [facility] 2 09:47:40 Obesity 447214241 Active 2015 referred to sleep study Anjum Schuster MD Attn: Balta yael,[address] [facility], [place], [address], [place] 2 09:47:40 Thyroid stimulat ing hormone level above referenc e range 649427228 Completed 201603/30/2017 Anjum Schuster MD Attn: Balta g,[address] [facility], [place], [address], [place] [facility] 7 09:02:48 Liver function tests outside referenc e range 496494347 Active 2016 Anjum Schuster MD Attn: Balta yael,[address] [facility], [place], [address], [place] [facility] 2 09:47:40 Hypothyr oidism 54118417 Active 2016 Anjum Schuster MD Attn: Balta conley,[address] [facility], [place], [place], [address] [place] [address] 2, [facility] 2 09:47:40 Pterygiu m of left eye 15369905972 9105 Active 2018 with glaucoma -seen by eye doctor Anjum Schuster MD Attn: Balta conley,[address] [facility], [place], [place], [address] [place] [address] 2, [place] [facility] 3 12:51:52 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 Anjum Schuster MD Attn: Balta conley,[address] [facility], [place], [place], [address] [place] [address] 2, [facility] 3 11:55:33 Secondar y polycyth emia 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 Anjum Schuster MD Attn: Balta conley,[address] [facility], [place], [place], [address] [place] [address] 2, [facility] 4 09:34:01 History of right hip replacem ent 96887255225 23801 Active 2023 sx 2011-see s ortho to recheck Anjum Schuster MD Attn: Balta conley,[address] [facility], [place], [place], [address] [place] [address] 2, [facility] 4 09:41:25 Cobalami n deficien cy 145550171 Active 2024 Valeria Avina APN, [employer]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 Procedures Surgical History Date Name Laterality Status Provider Name and Address Organization Details Recorded Time 2 Colonoscopy with biopsy completed Anjum Schuster MD Attn: Accounting,[address] [facility], [place], [address], [facility] 07/13/2022 14:15:32 12/04/201 8 Cerumen Removal completed Anjum Schuster MD Attn: Accounting,[address] [facility], [place], [address], [facility] 10/15/2018 09:30:16 0 Joint Replacement completed Bridget Rust [facility] 10/26/2016 14:11:52 Imaging Results None recorded. Procedure Notes None recorded. Medical Equipment None Reported. Allergies Allergen ID Allergen Name Allergen Category Reaction Reaction Severity Criticality Documentation Date Start Date Code Code System Note Provider Name and Address Organization Details Recorded Time 89777 Product containin g penicilli n (product) medicatio n Not available Not available Not available 10/26/2016 67786 8001 SNOMED Bridget Rust [facility] 6 14:07:17 44513 lisinopri l medicatio n cough Not available Not available 03/30/2017 89631 RxNorm Anjum Schuster MD Attn: Accountin g,[address] [facility], [place], [address], [facility] 7 09:11:59 Medications Name Sig Start Date Stop Date Status Note LastModified by Organization Details LastModified Time verapamil ER (SR) 120 mg tablet,ext ended release Take 1 tablet every day by oral route. 10/24 completed Not Available Not Available Not Available losartan 50 mg tablet Take 1 tablet every day by oral route. 12/11 completed Not Available Not Available Not Available doxycyclin e hyclate 100 mg capsule Take 1 capsule twice a day by oral route for 10 days. 05/10 completed Not Available Not Available Not Available azithromyc in 250 mg tablet 11/19 completed Not Available Not Available Not Available prednisone 20 mg tablet 11/19 completed Not Available Not Available Not Available verapamil ER (SR) 180 mg tablet,ext ended release TAKE 1 TABLET DAILY active Not Available Not Available No t Available cyanocobal vee (vit B-12) 1,000 mcg tablet Take 1 tablet every day by oral route. 2024 active otc Not Available Not Available Not Avai lable levothyrox ine 75 mcg tablet TAKE 1 TABLET BY MOUTH EVERY DAY 10/15 completed Not Available Not Available Not Available Mobic 15 mg tablet Take 1 tablet every day by oral route. 04/29 completed Not Available Not Available Not Available losartan 100 mg-hydroch lorothiazi de 25 mg tablet TAKE ONE TABLET BY MOUTH ONCE DAILY 11/26 completed Not Available Not Available Not Available levothyrox ine 88 mcg tablet TAKE 1 TABLET BY MOUTH EVERY DAY active Not Available Not Available No t Available prednisolo ne acetate 1 % eye drops,susp ension 03/16 completed Not Available Not Available Not Available levothyrox ine 50 mcg tablet TAKE 1 TABLET BY MOUTH EVERY DAY 02/26 completed Not Available Not Available Not Available Guaifenesi n AC 10 mg-100 mg/5 mL oral liquid Take 10 mL 3 times a day by oral route as needed for 5 days. 05/10 completed Not Available Not Available Not Available lisinopril 20 mg-hydroch lorothiazi de 25 mg tablet TAKE 1 TABLET BY MOUTH EVERY DAY 03/30 completed Not Available Not Available Not Available diclofenac sodium 75 mg tablet,del ayed release TAKE 1 TABLET BY MOUTH TWICE A DAY 08/13 completed Not Available Not Available Not Available ibuprofen 600 mg tablet TAKE 1 TABLET BY MOUTH TWICE DAILY 07/22 completed not taking Not Available Not Available Not Available methylpred nisolone 4 mg tablets in a dose pack TAKE 6 TABLETS ON DAY 1 DIRECTED ON PACKAGE AND DECREASE BY 1 TAB EACH DAY FOR A TOTAL OF 6 DAYS 03/21 completed Not Available Not Available Not Available Ventolin HFA 90 mcg/actuat ion aerosol inhaler 05/10 completed Not Available Not Available Not Available valsartan 320 mg-hydroch lorothiazi de 25 mg tablet TAKE 1 TABLET DAILY active Not Available Not Available No t Available GaviLyte-G 236 gram-22.74 gram-6.74 gram-5.86 gram oral solution 240 ML ORALLY EVERY 10 MINUTES TAKE DIRECTED MAY SUBSTITU TE ANY PEG PREP * 07/13 completed Not Available Not Available Not Available Vitals Date Recorded Body height Body mass index (BMI) Body weight Heart rate Respiratory rate Body temperature Oxygen saturation Systolic And Diastolic Provider Name and Address Organization Details Last Updated DateTime 3 168.91 cm 38 kg/m2 438938. 58 g 94 /min 16 /min 98.6 [degF] 95 % 118/80 mm[Hg] Shannon Soria [facility] 3 11:25:12 Date Recorded Body height Body mass index (BMI) Body weight Oxygen saturation Respiratory rate Body temperature Heart rate Systolic And Diastolic Provider Name and Address Organization Details Last Updated DateTime 5 168.91 cm 36.4 kg/m2 756053. 65 g 98 % 16 /min 98 [degF] 82 /min 134/82 mm[Hg] [facility] 5 09:32:14 Date Recorded Body height Body mass index (BMI) Body weight Heart rate Respiratory rate Body temperature Oxygen saturation Systolic And Diastolic Provider Name and Address Organization Details Last Updated DateTime 4 168.91 cm 36.6 kg/m2 864803. 25 g 80 /min 16 /min 97.1 [degF] 95 % 112/72 mm[Hg] Shannon Soria [facility] 4 09:23:35 Date Recorded Body height Body mass index (BMI) Body weight Respiratory rate Body temperature Heart rate Oxygen saturation Systolic And Diastolic Provider Name and Address Organization Details Last Updated DateTime 5 168.91 cm 36.7 kg/m2 734422. 84 g 16 /min 97.7 [degF] 80 /min 96 % 144/88 mm[Hg] [facility] 5 09:18:05 Date Recorded Body height Body mass index (BMI) Body weight Body temperature Oxygen saturation Respiratory rate Heart rate Systolic And Diastolic Provider Name and Address Organization Details Last Updated DateTime 3 168.91 cm 37.3 kg/m2 989065. 85 g 97.3 [degF] 95 % 16 /min 86 /min 130/80 mm[Hg] Lindsay Loya MA [facility] 3 12:23:16 Social History Question Answer Notes LastModified by Organizat ion Details LastModified Time Tobacco Smoking Status Never Smoker Bridget jade [facility] 12/11/2016 16:47:22 Are You Blind Or Do You Have Difficulty Seeing? Yes Keysha crawford Information not available 07/13/2022 What Is Your Level Of Caffeine Consumption? Occasional Information not available 08/13/2025 How Much Tobacco Do You Chew? 1/day 1 Can A Week, Quit 2017 Information not available 10/26/2016 In The 14 Days Before Symptom Onset, Have You Had Close Contact With A Laboratory-confir med COVID-19 While That Case Was Ill? No Information not available 05/10/2020 In The 14 Days Before Symptom Onset, Have You Had Close Contact With A Person Who Is Under Investigation For COVID-19 While That Person Was Ill? No Information not available 05/10/2020 Have You Been To An Area Known To Be High Risk For COVID-19? No Information not available 05/10/2020 Are You Deaf Or Do You Have Serious Difficulty Hearing? No [email or web address] Information not available 07/22/2021 What Type Of Diet Are You Following? SPECIFIC Trying High Protein, Low Carbs Information not available 03/17/2025 Which Illicit Or Recreational Drugs Have You Used? Denies Information not available 10/26/2016 Education 4 Year College Information not available 07/04/2017 Are There Any Guns Present In Your Home? Yes Information not available 04/29/2019 Do You Have A High School Diploma Or Higher Education? Yes [email or web address] Information not available 12/17/2020 Do You Sometimes Have To Miss Your Medical Appointments Due To Difficult Getting Transportation? No [email or web address] Information not available 12/17/2020 Do You Feel Unfairly Treated Due To Things Such As Race, Age, Gender, Disability Or Some Other Reason? No [email or web address] Information not available 12/17/2020 Do You Feel Physically And Emotionally Safe While Living At Home? Yes [email or web address] Information not available 12/17/2020 Do You Feel Physically And Emotionally Safe In Your Neighborhood Or Other Public Places? Yes [email or web address] Information not available 12/17/2020 Marital Status Informatio n not available 10/26/2016 What Was The Date Of Your Most Recent Tobacco Screening? 08/13/2025 Information not available 08/13/2025 How Many Children Do You Have? 3 Information not available 03/17/2025 What Is Your Relationship Status? Information not available 03/17/2025 Do You Use Your Seat Belt Or Car Seat Routinely? Yes [email or web address] Information not available 07/22/2021 Seat Belts Used Routinely Yes Information not available 04/29/2019 Smoke Alarm In Home Yes Information not available 10/30/2019 Do You Have Smoke And Carbon Monoxide Detectors In Your Home? Yes [email or web address] Information not available 07/22/2021 Are You Passively Exposed To Smoke? No Information no t available 03/17/2025 How Much Tobacco Do You Smoke? No Information not available 04/29/2019 General Stress Level Low Information not available 10/26/2016 Do You Use Sunscreen Routinely? No Information not available 04/29/2019 Has Tobacco Cessation Counseling Been Provided? No Information not available 04/29/2019 On What Date Was Tobacco Cessation Counseling Provided? 08/13/2025 Information not available 08/13/2025 Sex: Male Functional Status Question Answer Note LastModified by Organizat ion Details LastModified Time Do you use any illicit or recreational drugs? No Information not available 07/22/2021 Do you or have you ever used any other forms of tobacco or nicotine? No Information not available 07/22/2021 What is your level of alcohol consumption? Occasional Information not available 03/21/2024 Do you or have you ever used smokeless tobacco? Never used smokeless tobacco Information not available 10/30/2019 Are you currently employed? Yes [email or web address] Information not available 07/22/2021 Are you able to care for yourself independently? Yes [email or web address] Information not available 07/22/2021 What is your occupation? Social [facility] not available 03/21/2024 Do you or have you ever used e-cigarettes or vape? Never used electronic cigarettes Information not available 10/30/2019 What is your exercise level? None Information not available 03/17/2025 Mental Status Question Answer Note LastModified by Organization D etails LastModified Time Do you feel stressed (tense, restless, nervous, or anxious, or unable to sleep at night)? [id number] Information not available 07/22/2021 Family History Relationship Description Onset Age of this Age Resolved Age Notes LastModified by Organization Details LastModified Time Father Hypertensive disorder Not available 2015 14:08:42 Medical History Condition Response Coronary Artery Disease N Atrial Fibrillation N High Blood Pressure Y Thyroid Problems N Kidney or Bladder Problems N Depression N COPD N Blood Clots N GI Problems N Skin Problems N Anemia N Heart Attack (AK) N Diabetes N Anxiety Disorder N Muscle, Joint, or Bone Problems N Seizures/Epilepsy N Acid Reflux (GERD) N Cancer N Stroke N Allergies Y Asthma N High Cholesterol N Hepatitis N Liver Disease N Headaches N Osteoporosis N Heart Failure N Immunizations Vaccine Type Date Status Note Provider Nam e and Address Organization Details Recorded Time tetanus toxoid, unspecified formulation 1 completed Valeria Avina APN, FNP-C Attn: Accounting[address] [place], [address], [place] [facility] 03/17/2025 09:44:46 Tdap 0 completed Valeria Avina APN, FNP-C Attn: [address], [place], [address] [place] [address], [place] [facility] 03/17/2025 09:44:46 Tdap 9 completed Not Available [facility] 11/29/2019 02:39:14 COVID-19, mRNA, LNP-S, PF, 100 mcg/0.5mL dose or 50 mcg/0.25mL dose 1 completed Ju[place] Day null, [place] [facility] 01/31/2021 14:57:23 COVID-19, mRNA, LNP-S, PF, 100 mcg/0.5mL dose or 50 mcg/0.25mL dose 1 completed Rayna Felipe [place], [place] [facility] 02/28/2021 16:27:05 COVID-19, mRNA, LNP-S, PF, 100 mcg/0.5mL dose or 50 mcg/0.25mL dose 1 completed Al Puentes MA [facility], [place] [facility] 11/10/2021 15:22:18 Past Encounters Encounter ID Performer Location Encounter Start Date Encounter Closed Date Diagnosis/Indication Diagnosis SNOMED-CT Code Diagnosis ICD10 Code Diagnosis IMO Codes Diagnosis Note [id number] MD Isela Funez (Adult Med) [address] [place] [address] 10/26/2016 13:52:58 10/26/2016 17:05:03 Essential hypertension 02003568 I10 low salt diet and exercise to loose w tstart pt on Losarton Obesity 475245224 E66.8 healthy diet and exercise discussed with pt [id number] MD Tia Funezhalto (Adult Med) [address] [place] [address] 12/11/2016 16:25:55 12/12/2016 11:45:09 Essential hypertension 75268424 I10 low salt diet and exercise to loose w tpt to start Lisinopril hct ( pt does not have insurance at present time ) Liver func tion tests outside reference range 912146624 R94.5 pt to avoid alcohol /tylenol Thyroid st imulating hormone level above reference range 750246104 R79.89 monitor TSH [id number] MD Tia Funezhalto (Adult Med) [address] [place] [address] 01/10/2017 08:23:00 01/10/2017 10:27:21 Essential hypertension 62752481 I10 improvingl ow salt diet and exercise to loose w tpt to continue lisinopril hct Screening for malignant neoplasm of colon 668007662 Z12.[address] imulating hormone level above reference range 120995481 R79.89 monitor TSH [id number] MD Isela Funez (Adult Med) [address] [place] [address] 03/30/2017 08:34:26 03/30/2017 11:21:27 Essential hypertension 05529685 I10 low salt diet and exercise to loose w tpt to discontinu e lisinopril hct ( cough)star t pt on Losartonhc t Hypothyroidism 67953360 E03.9 new onset start pt on Levothyrox in Obesity 051238091 E66.8 healthy diet and exercise discussed with pt [id number] [facility] [address] [place] [address] 05/21/2017 09:18:35 05/22/2017 11:08:36 Essential hypertension 77107475 I10 low salt diet and exercise to loose w tpt to discontinu e lisinopril hct ( cough)star t pt on Losartonhc t [id number] [facility] [address] [place] [address] 07/04/2017 08:44:37 07/09/2017 16:25:18 Essential hypertension 92191203 I10 improvingl ow salt diet and exercise to loose w tcontinue Losartonhc Paddy Verapamil Hypothyroidism 04117178 E03.9 new onset continue Levothyrox in Pain of sh oulder region 35754216 M25.512 check xrayRefer to PT to prevent frozen shoulder Obesity 103859136 E66.8 healthy diet and exercise discussed with pt [id number] [facility] [address] [place] [address] 10/24/2017 08:25:37 10/24/2017 17:04:11 Essential hypertension 96316221 I10 fair controllow salt diet and exercise to loose w tcontinue Losartonhc tIncrease Verapamil Hypothyroidism 55899171 E03.9 Improving continue Levothyrox in Screening for malignant neoplasm of prostate 416997249 Z12.5 [id number] [facility] [address] [place] [address] 02/26/2018 08:21:02 02/27/2018 08:57:10 Essential hypertension 03535747 I10 Improvingl ow salt diet and exercise to loose w tcontinue Losartonhc t /Verapamil Hypothyroidism 95660571 E03.9 Improving Increase Levothyrox in 75 mcg daily Obesity 128044881 E66.8 healthy diet and exercise discussed with pt Snoring symptoms 0721706 00 R06.83 pt denied any insomnia or daytime sleepiness or apnea [id number] MD Tia Funezhalto (Adult Med) [address] [place] [address] 10/15/2018 08:50:45 10/15/2018 15:17:00 Essential hypertension 66303393 I10 stablelow salt diet and exercise to loose w tcontinue Losartonhc t /Verapamil Hypothyroidism 12346905 E03.9 Improving Increase Levothyrox in 88 mcg daily Ankle pain 539097551 M25 .572 ice / mobic prn daily Impacted c erumen in left ear 2454172157 904551 H61.22 s/p ear irrigation [id number] MD Isela Funez (Adult Med) [address] [place] [address] 04/29/2019 09:15:59 04/30/2019 14:06:48 Essential hypertension 59077764 I10 stablelow salt diet and exercise to loose w tcontinue Losartonhc t /Verapamil Hypothyroidism 61657180 E03.9 continue Levothyrox in 88 mcg daily Snoring symptoms 0938120 00 R06.83 with borderline pulse oxpt denied any insomnia/a pneapt has some daytime sleepiness Pterygium of left eye 33 91009977 82654 H11.002 with rednesspt to see eye doctor [id number] [facility] [address] [facility] [address] 10/30/2019 09:33:58 11/03/2019 09:15:16 Administration of diphtheria, pertussis, and tetanus vaccine 951612529 Z23 Essential hypertension 56500682 I10 stablelow salt diet and exercise to loose w tcontinue Losartonhc t /Verapamil Hypothyroidism 27689731 E03.9 continue Levothyrox in 88 mcg daily Obesity 337713146 E66.8 healthy diet and exercise discussed with ptpt is awaiting to do for home sleep study. Screening for malignant neoplasm of prostate 270646751 Z12.5 [id number] MD Isela Funez (Adult Med) [address] [place] [address] 11/19/2019 11:50:32 11/21/2019 08:46:45 Acute bronchitis 90963183 J20.9 [id number] BRENT Garcia, FELICIA Breezy renteria [address] [place] [address] 03/30/2020 09:41:10 03/31/2020 17:04:20 Suspected COVID-19 036714859 Z03.818 D/w pt the current pandemic of COVID-19 and call for social isolation in order to blunt the curve and minimize risk and spread. Encouraged patient and family to take restrictio ns seriously. They have verbalized understand ing of such. Viral screening 36586177 4 Z11.59 Viral syndrome 414607493 B34.9 [id number] MD Tia Funezhalto (Adult Med) [address] [place] [address] 05/10/2020 08:36:00 05/12/2020 13:36:58 Essential hypertension 91252459 I10 stablelow salt diet and exercise to loose w tcontinue Losartonhc t /Verapamil Hypothyroidism 44494484 E03.9 continue Levothyrox in 88 mcg daily [id number] [facility] [address] [place] [address] 08/13/2020 08:15:11 08/20/2020 15:49:56 Essential hypertension 69133330 I10 stablelow salt diet and exercise to loose w tcontinue Losartonhc t /Verapamil Hypothyroidism 20403777 E03.9 continue Levothyrox in 88 mcg daily Liver func tion tests outside reference range 177011222 R94.5 pt to avoid alcohol /tylenol Hyperglycemia 45269155 R 73.9 watch diet and exercise [id number] MD Tia Funezhalto (Adult Med) [address] [place] [address] 11/19/2020 09:59:56 11/22/2020 14:07:17 Acute gout 177358161 M10.472 improving with nsaid .keep good hydration/ avoid food containing red meat and alcohol . [id number] MD Tia Funezhalto (Adult Med) [address] [place] [address] 12/17/2020 08:05:01 12/20/2020 10:38:48 Essential hypertension 00273545 I10 stablelow salt diet and exercise to loose w tcontinue Losartonhc t /Verapamil Hypothyroidism 37521573 E03.9 continue Levothyrox in 88 mcg daily Obesity 250418242 E66.8 healthy diet and exercise discussed with ptpt did not go for sleep study- his insurance did not cover per pt. [id number] MD Jewell Dumont 14 IM [address] [facility] [place] [address] 01/31/2021 14:02:23 02/01/2021 10:00:43 Administration of SARS-CoV-2 antigen vaccine 805476006 Z23 [id number] MD Jewell Dumont 14 IM [address] [facility] [place] [address] 02/28/2021 13:57:16 03/01/2021 14:06:57 Administration of SARS-CoV-2 antigen vaccine 264068749 Z23 [id number] [facility] [address] [facility] [address] 07/22/2021 09:10:35 07/25/2021 08:43:36 Essential hypertension 05814030 I10 stablelow salt diet and exercise to loose w tcontinue Losartonhc t /Verapamil Hypothyroidism 91593963 E03.9 continue Levothyrox in 88 mcg daily Obesity 143653706 E66.9 healthy diet and exercise discussed with ptpt did not go for sleep study- his insurance did not cover per pt. [id number] MD Isela Robert (Adult Med) [address] [facility] [address] 11/10/2021 15:06:03 11/13/2021 09:37:21 Administration of SARS-CoV-2 mRNA vaccine 4211685617 Z23 [id number] [facility] [address] [facility] [place] [address] 01/27/2022 14:36:41 01/30/2022 08:24:16 Essential hypertension 37338933 I10 stablelow salt diet and exercise to loose w tcontinue Losartonhc t /Verapamil Hypothyroidism 30187084 E03.9 continue Levothyrox in 88 mcg daily Obesity 592201705 E66.9 healthy diet and exercise discussed with ptpt did not go for sleep study- pt is willing to do now Screening for malignant neoplasm of colon 911160734 Z12.11 [id number] [facility] [address] [place] [address] 07/13/2022 13:40:54 07/14/2022 07:42:58 History and physical examination, pre-employment 023085351 Z02.1 healthy diet and exercise discussed with pt- also discussed about psa test-benef its and risks / pt denied f/h of prostate ca Essential hypertension 64485956 I10 stablelow salt diet and exercise to loose w tcontinue Losartonhc t /Verapamil Hypothyroidism 16452791 E03.9 continue Levothyrox in 88 mcg daily [id number] [facility] [address] [place] [address] 03/16/2023 11:10:56 03/20/2023 11:53:19 Essential hypertension 70623693 I10 stablelow salt diet and exercise to loose w tcontinue Losartonhc t /Verapamil Hypothyroidism 52066673 E03.9 continue Levothyrox in 88 mcg daily Obesity 412444985 E66.9 healthy diet and exercise discussed with ptpt did not go for sleep study Screening for malignant neoplasm of prostate 662235058 Z12.5 - discussed about risks and benefits of screening - pt requested to go for psa test Idiopathic peripheral neuropathy 06026535 G60.9 - pt to cut down on etoh- pt to take vit B12 1000 mcg daily Onychomyco sis of toenails 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 B35.1 with neuropathy - pt wants to see grain miller helper [id number] [facility] [address] [place] [address] 08/24/2023 11:44:48 09/04/2023 14:14:35 Influenza vaccination declined 216694751 Z28.21 Essential hypertension 52016591 I10 stablelow salt diet and exercise to loose w tcontinue Losartonhc t /Verapamil Hypothyroidism 16566649 E03.9 continue Levothyrox in 88 mcg daily Obesity 289240757 E66.9 healthy diet and exercise discussed with ptpt did not go for sleep study Cobalamin deficiency 190 250391 E53.8 - pt to take vit b12 daily Onychomyco sis of toenails 123185394 B35.1 with neuropathy - pt wants to see grain miller helper -need referral again [id number] MD Isela Funez (Adult Med) [address] [place] [address] 03/21/2024 08:58:20 03/24/2024 16:12:22 Essential hypertension 23250301 I10 stablelow salt diet and exercise to loose w tcontinue Losartonhc t /Verapamil Hypothyroidism 99485499 E03.9 continue Levothyrox in 88 mcg daily Obesity 461683085 E66.9 healthy diet and exercise discussed with ptpt did not go for sleep study Secondary polycythemia 81359885 D75.1 -check iron panel/ pt declined sleep study Impacted c erumen in right ear 5251872914 998038 H61.21 [id number] MD Isela Robert (Adult Med) [address] [place] [address] 03/17/2025 09:16:51 03/23/2025 15:24:19 Adult health examination 084242721 Z00.01 Encouraged patient to eat well balanced meals, live active lifestyle and attend routine vision/den anthony apts. Essential hypertension 36761894 I10 stable, cont verapamil, valsartan- hctz Hypothyroidism 58876757 E03.9 currently on levo 88 mcg; Cobalamin deficiency 190 742711 E53.8 b12 low in past, will check level Screening for malignant neoplasm of prostate 458411497 Z12.5 307847 Obese class II 590758521 1 [address]551 E66.812 7477821400 advised low fat, low cholestero l diet, regular exercise and weight reduction. History of polyp of colon 360674816 Z86.0100 [id number] due to repeat scope [id number] MD Isela Robert (Adult Med) [address] [place] [address] 08/13/2025 09:05:40 08/17/2025 17:44:22 Essential hypertension 35128061 I10 Elevated on intake, patient states he did not take his medicine today, Cont verapamil, valsartan- hctz Obese class II 400709588 1 34171 E66.812 E66.3 7622898520 advised low fat, low cholestero l diet, regular exercise and weight reduction. Hypothyroidism 30873751 E03.9 currently on levo 88 mcg; Cobalamin deficiency 190 786240 E53.8 b12 low in past, will check level Pain of right wrist 3169 940701 75726 M25.531 630703 right hand going numb, advised nerve conduction study, patient wanting to avoid surgery -continue to wear brace as needed Numbness of limbs 412526 001 R20.0 2551628 right hand going numb, advised nerve conduction study, patient wanting to avoid surgery -continue to wear brace as needed Finding of tobacco use and exposure 485571680 Z87.891 50309443 Health Concerns Section Related Observation LastModified by Organization Detai ls LastModified Time None Recorded Concern Status LastModified by Organization Details LastModified Time None Recorded Advance Directives Directive None Recorded Payers Insurance Date Sequence Insurance Name Policy Number Policy Juárez Covered Member ID Juárez Member ID Guarantor Name 09/22/2024 1 [facility] [id number] Chris Salgado [id number] Chris Salgado 05/06/2020 2 *SELF PAY* Arvin Salgado 09/14/[address] [facility] [id number] Chris Salgado [id number] Chris Salgado 03/21/2024 2 *SELF PAY* Arvin Salgado 09/22/2024 1 [facility] [id number] Chris Salgado [id number] Chris Salgado 09/22/[address] [facility] [id number] Chris Salgado [id number] Chris Salgado 09/22/2024 1 [facility]) [id number] Chris Salgado [id number] Chris Salgado 01/10/2017 SLIDING FEE SCHEDULE - DISCOUNT Chris Salgado 01/10/2017 1 *SELF PAY* Arvin Salgado 09/22/2024 1 [facility] [id number] Chris Salgado [id number] Chris Salgado Notes Date Note Type Note Provider Name and Address Organization Details Recorded Time 03/16/2023 text/html Hypertension F/UReported by PatientHPIFor associated symptoms, patient reportsno dizziness,no chest pain,no shortness of breath,no palpitations, andno edema. For lifestyle, patient reportsregular exerciseandlimiting/av oiding salt. For medications, patient reportstaking medications as directedandno side effects from medication. ThyroidReported by PatientHPIFor context, patient reportshistory of hypothyroidism. For modifying factors, patient reportsmedication (thyroid pill- taking med as prescribed.). For associated symptoms, patient reportsno weight loss,no palpitations,no constipation,no depression, andno fatigue. For duration, (chronic). Discussed about borderline pulse ox and sleep apnea-did not do sleep study due to insurance issue . Pt is nonsmoker / denied second smoke. pt is complaining of toe nail fungus and numbness of both feet . pt admits that he drinks beer few days /wk especially over the weekend Anjum Schuster MD Attn: Accounting[address] [place], [address], [facility] 03/16/2023 14:08:38 08/24/2023 text/html Hypertension F/UReported by PatientHPIFor associated symptoms, patient reportsno dizziness,no chest pain,no shortness of breath,no palpitations, andno edema. For lifestyle, patient reportsregular exerciseandlimiting/av oiding salt. For medications, patient reportstaking medications as directedandno side effects from medication. ThyroidReported by PatientHPIFor context, patient reportshistory of hypothyroidism. For modifying factors, patient reportsmedication (thyroid pill- taking med as prescribed.). For associated symptoms, patient reportsno weight loss,no palpitations,no constipation,no depression, andno fatigue. For duration, (chronic). Discussed about borderline pulse ox and sleep apnea-did not do sleep study due to insurance issue . Pt is nonsmoker / denied second smoke. pt is complaining of toe nail fungus and numbness of both feet . pt admits that he drinks beer few days /wk especially over the weekend Anjum Schuster MD Attn: Accounting[address] [place], [address], [facility] 08/24/2023 12:52:38 03/21/2024 text/html Hypertension F/UReported by PatientHPIFor associated symptoms, patient reportsno dizziness,no chest pain,no shortness of breath,no palpitations, andno edema. For lifestyle, patient reportsregular exerciseandlimiting/av oiding salt. For medications, patient reportstaking medications as directedandno side effects from medication. ThyroidReported by PatientHPIFor context, patient reportshistory of hypothyroidism. For modifying factors, patient reportsmedication (thyroid pill- taking med as prescribed.). For associated symptoms, patient reportsno weight loss,no palpitations,no constipation,no depression, andno fatigue. For duration, (chronic). Discussed about borderline pulse ox and sleep apnea-did not do sleep study due to insurance issue . Pt is nonsmoker / denied second smoke. pt is complaining of toe nail fungus and numbness of both feet . pt admits that he drinks beer few days /wk especially over the weekend Anjum Schuster MD Attn: Accounting[address] [place], [place], [address] [place] [address], [facility] 03/21/2024 15:50:44 03/17/2025 text/html Hypertension F/UReported by PatientHPIFor associated symptoms, patient reportsno dizziness,no chest pain,no shortness of breath,no palpitations, andno edema. For lifestyle, patient reportsregular exerciseandlimiting/av oiding salt. For medications, patient reportstaking medications as directedandno side effects from medication.pt admits that he drinks beer few days /wk especially over the weekend ThyroidReported by PatientHPIFor context, patient reportshistory of hypothyroidism. For modifying factors, patient reportsmedication (thyroid pill- taking med as prescribed.). For associated symptoms, patient reportsno weight loss,no palpitations,no constipation,no depression, andno fatigue. For duration, (chronic). Valeria Avina APN, GEOTHERMAL OPERATIONS MANAGER-C Attn: Accounting[address] [facility], [place], [address], [facility] 03/17/2025 10:39:18 08/13/2025 text/html Hypertension F/UReported by PatientHPIFor associated symptoms, patient reportsno dizziness,no chest pain,no shortness of breath,no palpitations, andno edema. For lifestyle, patient reportsregular exerciseandlimiting/av oiding salt. For medications, patient reportstaking medications as directedandno side effects from medication. ThyroidReported by PatientHPIFor context, patient reportshistory of hypothyroidism. For modifying factors, patient reportsmedication (thyroid pill- taking med as prescribed.). For associated symptoms, patient reportsno weight loss,no palpitations,no constipation,no depression, andno fatigue. For duration, (chronic). possible carpal tunnel in right wrist. denies pain, but having numbness. started 2 months ago. wearing splint and icing wrist but not getting any relief. Valeria Avina APN, GEOTHERMAL OPERATIONS MANAGER-C Attn: Accounting[address] [place], [address], [place] [facility] 08/13/2025 09:51:19
--- OUTSIDE RECORDS SUMMARY | 2025-10-02 00:11 | XMS_ITS | Continuity of Care Document ---
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 Plan of Treatment Reminders Order Date Submit Date Provider Last Modified By Organization Details Last Modified Time Details Appointments None recorded . Lab None recorded . Referral None recorded . Procedures None recorded . Surgeries None recorded . Imaging electrom yogram + nerve conducti on study [address] (Cardiology [facility] Emg), [address] [place] [address], [address], 17:45:23 XR, wrist, 3 or more view [address] [facility], [address] [place] [address], [address], 5 11:33:09 Medication Orders valsarta n 320 mg-hydro chloroth iazide 25 mg tablet 2024 [facility][id number], [address] [place], [address], 5 09:47:57 verapami l ER (SR) 180 mg tablet,e xtended release 2024 025 [facility][id number], [address] [place], [address], 09:47:58 levothyr oxine 88 mcg tablet 2024 [facility], [address] [place], [address], 09:47:57 cyanocob alamin (vit B-12) 1,000 mcg tablet 2024 025 [facility]3259, [address] [place], [address], 09:47:57 Patient TargetsNo targets recorded. Patient Instructions Encounter Date Encounter Id Patient Instructions Last Modified By Organization Details Last Modified Time 08/13/2025 [id number] Quitting Tobacco : Care Instructions Not available 08/13/2025 09:47:53 A healthy lifestyle: care instructions Not available 08/13/2025 09:47:53 learning about high blood pressure Not available 08/13/2025 09:47:53 Please call office if any questions or concerns. Take all medicines as prescribed and follow with all specialists as planned. Not available 08/13/2025 09:51:09 Follow-up as planned Not available 08/13/2025 09:51:02 Reason for Referral None Reported. Problems Name Problem SNOMED Code Status Onset Date Resolution Date Notes Provider Name and Address Organization Details Recorded Time [facility] 77183441 Active 2015 Anjum Schuster MD Attn: Balta conley[address] [place], [address], [facility] - [facility] 09:47:40 Obesity 513457104 Active 2015 referred to sleep study Anjum Schuster MD Attn: Balta conley,[address] [facility], [place], [address], [place] 2 09:47:40 Thyroid stimulat ing hormone level above referenc e range 292134181 Completed 201603/30/2017 Anjum Schuster MD Attn: Balta conley[address] [facility], [place], [address], [place] [facility] 7 09:02:48 Liver function tests outside referenc e range 927591046 Active 2016 Anjum Schuster MD Attn: Balta conley,[address] [facility], [place], [address], [place] [facility] 2 09:47:40 Hypothyr oidism 47816319 Active 2016 Anjum Schuster MD Attn: Balta conley,[address] [facility], [place], [address], [place] [facility] 2 09:47:40 Pterygiu m of left eye 36075970296 9105 Active 2018 with glaucoma -seen by eye doctor Anjum Schuster MD Attn: Balta conley,[address] 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, [place], [address], [place] [facility] 3 11:55:33 Secondar y polycyth emia 03644507 Active 2023 Anjum Schuster MD Attn: Balta conley,[address] [facility], [place], [address], [place] [facility] 4 09:34:01 History of right hip replacem ent 22693170404 00373 Active 2023 sx 2011-see s ortho to recheck Anjum Schuster MD Attn: Balta conley,[address] [facility], [place], [address], [place] [facility] 4 09:41:25 Cobalami n deficien cy 616300966 Active 2024 Valeria Avina APN, DIRECTOR FUNERAL-C Attn: Balta conley,[address] [facility], [place], [address], [facility] 5 09:43:21 Problem Notes None recorded. Procedures Surgical History Date Name Laterality Status Provider Name and Address Organization Details Recorded Time 2 Colonoscopy with biopsy completed Anjum Schuster MD Attn: Accounting,[address] [facility], [place], [address], [facility] 07/13/2022 14:15:32 8 Cerumen Removal completed Anjum Schuster MD Attn: Accounting,[address] [facility], [place], [address], [facility] 10/15/2018 09:30:16 0 Joint Replacement completed Bridget Rust [facility] 10/26/2016 14:11:52 Imaging Results None recorded. Procedure Notes None recorded. Medical Equipment None Reported. Allergies Allergen ID Allergen Name Allergen Category Reaction Reaction Severity Criticality Documentation Date Start Date Code Code System Note Provider Name and Address Organization Details Recorded Time 38564 Product containin g penicilli n (product) medicatio n Not available Not available Not available 10/26/2016 30219 8001 SNOMED Bridget Rust [facility] 6 14:07:17 12320 lisinopri l medicatio n cough Not available Not available 03/30/2017 91058 RxNorm Anjum Schuster MD Attn: Balta conley,[address] [facility], [place], [address], [facility] 7 09:11:59 Medications Name Sig Start Date [...] Updated DateTime 5 168.91 cm 36.7 kg/m2 167957. 84 g 16 /min 97.7 [degF] 80 /min 96 % 144/88 mm[Hg] SAUL Veras [facility] 5 09:18:05 Social History Question Answer Notes LastModified by Organizat ion Details LastModified Time Tobacco Smoking Status Never Smoker Bridget Yocasta jade [facility] 12/11/2016 16:47:22 Are You Blind Or Do You Have Difficulty Seeing? Yes Glalyssa [email or web address] Information not available 07/13/2022 What Is Your [...] Do You Have Serious Difficulty Hearing? No [email or web address] Information not available 07/22/2021 What Type Of [...] High School Diploma Or Higher Education? Yes [email or web address] Information not available 12/17/2020 Do You Sometimes Have To Miss Your Medical Appointments Due To Difficult Getting Transportation? No [email or web address] Information not available 12/17/2020 Do You Feel Unfairly Treated Due To Things Such As Race, Age, Gender, Disability Or Some Other Reason? No [email or web address] Information not available 12/17/2020 Do You Feel Physically And Emotionally Safe While Living At Home? Yes [email or web address] Information not available 12/17/2020 Do You Feel Physically And Emotionally Safe In Your Neighborhood Or Other Public Places? Yes [email or web address] Information not available 12/17/2020 Marital Status Informatio n not available 10/26/2016 What Was The Date Of Your Most Recent Tobacco Screening? 08/13/2025 Information not available 08/13/2025 How Many Children Do You Have? 3 Information not available 03/17/2025 What Is Your Relationship Status? Information not available 03/17/2025 Do You Use Your Seat Belt Or Car Seat Routinely? Yes [email or web address] Information not available 07/22/2021 Seat Belts Used Routinely Yes Information not available 04/29/2019 Smoke Alarm In Home Yes Information not available 10/30/2019 Do You Have Smoke And Carbon Monoxide Detectors In Your Home? Yes [email or web address] Information not available 07/22/2021 Are You Passively [...] use any illicit or recreational drugs? No [email or web address] Information not available 07/22/2021 Do you or have you ever used any other forms of tobacco or nicotine? No [email or web address] Information not available 07/22/2021 What is your level of alcohol consumption? Occasional Information not available 03/21/2024 Do you or have you ever used smokeless tobacco? Never used smokeless tobacco Information not available 10/30/2019 Are you currently employed? Yes [email or web address] Information not available 07/22/2021 Are you able to care for yourself independently? 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 Never used electronic cigarettes Information not available 10/30/2019 What is your exercise level? None Information not available 03/17/2025 Mental Status Question Answer Note LastModified by Organization D etails LastModified Time Do you feel stressed (tense, restless, nervous, or anxious, or unable to sleep at night)? [id number] [email or web address] Information not available 07/22/2021 Family History Relationship [...] Skin Problems N Anemia N Heart Attack (DC) N Diabetes N Anxiety Disorder N Muscle, [...] unspecified formulation 1 completed Valeria Avina APN, DIRECTOR FUNERAL-C Attn: Accounting[address] [place], [address], [facility] 03/17/2025 09:44:46 Tdap 0 completed Valeria Avina APN, DIRECTOR FUNERAL-C Attn: Accounting[address] , [place], [address], [place] [facility] 03/17/2025 09:44:46 Tdap 9 completed Not Available [facility] 11/29/2019 02:39:14 COVID-19, mRNA, LNP-S, PF, 100 mcg/0.5mL dose or 50 mcg/0.25mL dose 1 completed Ju[place] Day null, [place] [facility] 01/31/2021 14:57:23 COVID-19, mRNA, LNP-S, PF, 100 mcg/0.5mL dose or 50 mcg/0.25mL dose 1 completed Rayna Felipe [place], [place] [facility] 02/28/2021 16:27:05 COVID-19, mRNA, LNP-S, PF, 100 mcg/0.5mL dose or 50 mcg/0.25mL dose 1 completed Al Puentes MA null, [place] [facility] 11/10/2021 15:22:18 Past Encounters Encounter ID Performer Location Encounter Start Date Encounter Closed Date Diagnosis/Indication Diagnosis SNOMED-CT Code Diagnosis ICD10 Code Diagnosis IMO Codes Diagnosis Note [id number] MD [facility] (Adult Med) [address] [place] [address] 08/13/2025 09:05:40 08/17/2025 17:44:22 Essential hypertension 44793419 I10 Elevated on intake, patient states he did not take his medicine today, Cont verapamil, valsartan- hctz Obese class II 512584996 1 74579 E66.812 E66.3 5271534770 advised low fat, low cholestero l diet, regular exercise and weight reduction. Hypothyroidism 24711485 E03.9 currently on levo 88 mcg; Cobalamin deficiency 190 281648 E53.8 b12 low in past, will check level Pain of right wrist 3169 955617 20258 M25.531 098869 right hand going numb, advised nerve conduction study, patient wanting to avoid surgery -continue to wear brace as needed Numbness of limbs 357052 001 R20.0 8931329 right hand going numb, advised nerve conduction study, patient wanting to avoid surgery -continue to wear brace as needed Finding of tobacco use and exposure 692112784 Z87.891 05691870 Health Concerns Section Related Observation LastModified by Organization Detai ls LastModified Time None Recorded Concern Status LastModified by Organization Details LastModified Time None Recorded Payers Encounter Date Sequence Insurance Name Policy Number Policy Juárez Covered Member ID Juárez Member ID Guarantor Name 08/13/2025 2 *SELF PAY* Arvin cristina Delety 08/13/2025 1 [facility] [id number] Chris Salgado [id number] Chris Salgado Notes Date Note Type Note Provider Name and Address Organization Details Recorded Time 08/13/2025 text/html Hypertension F/UReported by PatientHPIFor associated [...] not getting any relief. Valeria Avina APN, DIRECTOR FUNERAL-C Attn: Accounting[address] [place], [address], [facility] 08/13/2025 09:51:19
[2025-10-02 09:52] VITALS: BP 125/73; PULSE 83; RESP 16; TEMP 36.3; O2SAT 95; BMI 35.8
[2025-10-02] MEDS: LACTATED RINGERS 1,000 ML 150 ML IV CONT (10:18)
--- NOTE | 2025-10-02 10:51 | WPDANESEPPF ---
Anes - Initial Pre Proc Eval Procedure: Operation Date: 10/02/25 11:00 Proposed Procedures p Screening Colonoscopy - Alfredo Salazar MD Date/Time: 10/02/25 10:51 Surgeon: Alfredo Salazar MD Pre Op Diagnosis: Personal history of colon polyps, unspecified Patient Data Age: 64 Gender: M Height: 1.68 m Weight: 100.6 kg Last Vital Signs Temp 97.4 F L 10/02/25 09:52 Pulse 83 10/02/25 09:52 Resp 16 10/02/25 09:52 BP 125/73 10/02/25 09:52 Pulse Ox 95 10/02/25 09:52 O2 Del Method Room Air 10/02/25 09:52 Allergies Allergy/AdvReac Type Severity Reaction Status Date / Time Penicillins Allergy Mild Unknown Verified 10/02/25 09:48 lisinopril AdvReac Cough Verified 10/02/25 09:48 Home Medications ?Medication ?Instructions ?Recorded ?Confirmed ?Type levothyroxine 88 mcg tablet 88 mcg PO DAILY 10/07/19 10/02/25 History losartan 100 1 tablet PO DAILY 10/07/19 10/02/25 History mg-hydrochlorothiazide 25 mg tablet verapamil 180 mg tablet,extended 180 mg PO DAILY 10/07/19 10/02/25 History release diclofenac sodium 75 mg 75 mg PO BID #60 tabs 06/11/24 09/15/25 Rx tablet,delayed release Held on 09/15/25. Instructions: Patient no longer taking Patient hx anesthesia problems: none Family hx anesthesia problems: none Results Review: All pre-operative results and documents have been reviewed as part of the pre-operative evaluation. [facility] Past Medical History Medical History Arthritis Sleep apnea Hypertension Essential hypertension Hypothyroidism Surgical History Surgical History History of orthopedic surgery ORIF of right hip, CR Left arm. Right hip replacement 2010. Family History Family History Father Hypertension Asthma Mother Cancer Mother Family history of malignant neoplasm of brain Social History Social History (Updated 03/26/24 @ 14:46 by Lissett Holland [facility] Smoking status: Never smoker Second hand tobacco smoke exposure: No Alcohol intake: current Drinks per week: 6 Alcohol use details: BEER Substance use: never Substance use type: does not use Do You Feel Safe in your Home?: Yes Lack of Transportation: No Lack of Food: Never True Current Housing: I Have Housing Concerned About Future Housing: No Difficulty Paying Gas/Electric Bills: No Difficulty Paying for Meds: No Currently Unemployed: No Education: Bachelor's Degree Difficulty w/ Childcare or Family Care: No Living arrangements: with friend(s) Occupation/Education: occupation 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 HTN, hypothryodism, good ex jd without cp or sob. Informed Consent: The patient's anesthetic plan and its attendant risks and benefits were discussed with the patient/family/POA. Questions were solicited and answers provided to the satisfaction of the patient/family/POA.
--- NOTE | 2025-10-02 11:01 | PM.HPGS ---
History of Present Illness History of Present Illness Consent: Risks, benefits, and alternatives have been discussed and questions answered. Patient agrees to proceed with procedure. Chief complaint: Personal history of colon polyps, unspecified Narrative: Chris Salgado is a 64 year old male with colon polyp in 2021 Review of Systems Review of Systems: All systems reviewed & are unremarkable except as noted in HPI and below PMFSH Past Medical History Medical History Arthritis Sleep apnea Hypertension Essential hypertension Hypothyroidism Surgical History Surgical History History of orthopedic surgery ORIF of right hip, CR Left arm. Right hip replacement 2010. Family History Family History Father Hypertension Asthma Mother Cancer Mother Family history of malignant neoplasm of brain Social History Social History (Updated 03/26/24 @ 14:46 by Lissett Holland [facility]) Smoking status: Never smoker Second hand tobacco smoke exposure: No Alcohol intake: current Drinks per week: 6 Alcohol use details: BEER Substance use: never Substance use type: does not use Do You Feel Safe in your Home?: Yes Lack of Transportation: No Lack of Food: Never True Current Housing: I Have Housing Concerned About Future Housing: No Difficulty Paying Gas/Electric Bills: No Difficulty Paying for Meds: No Currently Unemployed: No Education: Bachelor's Degree Difficulty w/ Childcare or Family Care: No Living arrangements: with friend(s) Occupation/Education: occupation 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 Instructions: Patient no longer taking Allergies Allergy/AdvReac Type Severity Reaction Status Date / Time Penicillins Allergy Mild Unknown Verified 10/02/25 09:48 lisinopril AdvReac Cough Verified 10/02/25 09:48 Vital Signs Vital Signs - 24 hr 10/02/25 09:52 Temperature 97.4 F L Pulse Rate 83 Respiratory Rate 16 Blood Pressure 125/73 Pulse Oximetry 95 Oxygen Delivery Room Air Exam Const: General: comfortable and no acute distress HENMT: Face/Nose/Sinus: Normal nares present Eyes: General: appearance normal, both eyes and all related structures Neck: Neck: no JVD Resp: Auscultation: clear to auscultation bilaterally Cardio: Rate: regular rate Rhythm: regular rhythm GI: Inspection: non-distended GI Palp: Yes Soft to palpation Skin: General skin exam: normal color Extrem: General: normal to inspection Psych: Mental Status: mental status grossly normal Assessment and Plan Assessment and plan (1) History of colon polyps: Code(s): Z86.010 - Personal history of colon polyps Status: Acute Assessment and Plan: colonoscopy
--- NOTE | 2025-10-02 11:17 | S_PTH ---
PATIENT: Chris Salgado LOC: [facility]#:[id number] AGE/SX: 64/M ROOM: RE10/02/[address]: Alfredo Salazar MD : 1960 BED: DIS: 10/02/2025 SPEC #: [id number] RECD: 10/02/25 13:02 STATUS: CECE REPeter #: [id number] CHAPITO: 10/02/25 11:[address]: Alfredo Salazar DEPT: [facility] Surgical RECD BY: Olivia Florian ENTERED: 10/02/25 13:03 SP TYPE: Surgical OTHR DR: Valeria Dunne, POCKET STITCHER Tissues: A - Colon Polypectomy B - Colon Polypectomy Procedures: Hematoxylin and Eosin Stain Gross and Microscopic Level 4
[2025-10-02 11:21] VITALS: BP 89/57; PULSE 81; RESP 19; O2SAT 96
[2025-10-02 11:31] VITALS: BP 127/77; PULSE 65; RESP 25; O2SAT 99
[2025-10-02 11:41] VITALS: BP 136/85; PULSE 74; RESP 22; O2SAT 99
== END 2025-10-02 11:50 | disposition home or self-care (01) ==
PROVIDERS: PCP Nurse Practitioner Family; Referring Provider Nurse Practitioner Family; Visit Provider Internal Medicine Gastroenterology
PROC: 0DJD8ZZ Inspection of Lower Intestinal Tract, Via Natural or Artificial Opening Endoscopic (ICD-10-PCS; CPT 45378; principal; 2025-10-02 11:00)
DX: Z12.11 Encounter for screening for malignant neoplasm of colon (principal); D12.2 Benign neoplasm of ascending colon; K63.5 Polyp of colon; K57.30 Diverticulosis of large intestine without perforation or abscess without bleeding; K64.8 Other hemorrhoids; E66.9 Obesity, unspecified; Z68.35 Body mass index [BMI] 35.0-35.9, adult
CPT/HCPCS: 45385; 88305; J2003; J2704; J7120